=== PATIENT | female | born 1975 | race Caucasian/White ===

== ENCOUNTER → 2016-10-13 | Outpatient (CLI) | payer BC ==
[~2016-10-13] MED LIST: ALPR.25T PO; AZIT250T81 PO; ESCI20TA PO; FLUC150T PO
[2016-10-13 14:22] VITALS: BP 125/70
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
== END ==
LOC: MHUC 11:57
PROVIDERS: ATTEND Physician Assistant
DX: J01.00 Acute maxillary sinusitis, unspecified (principal); F41.9 Anxiety disorder, unspecified
CPT/HCPCS: 99213